=== PATIENT | female | born 1975 | race Caucasian/White ===

== ENCOUNTER 2021-01-21 09:03 | Inpatient (IN) ==
[2021-01-21] MEDS ORDERED: SODIUM CHLORIDE 0.9% 1,000 ML IV STA (09:29)
[2021-01-21] MEDS ORDERED: ONDANSETRON 4 MG/2 ML VIAL IV ONE (09:50)
[2021-01-21] MEDS ORDERED: KETOROLAC 30 MG/1 ML VIAL IV STA (09:50)
[2021-01-21 10:28] LABS: Basophils # 0.1 10*3/uL (0.0-0.2); Basophils % 0.8 % (0.0-0.8); Eosinophils # 0.1 10*3/uL (0.0-0.87); Eosinophils % 2.1 % (0.00-10.9); Hematocrit 36.1 VOL% (35.7-47.0); Hemoglobin 13.1 GM/DL (12.0-16.0); Immature Granulocytes % 0.5 %; Immature Granulocytes Absolute 0.03 #; Lymphocytes # 1.1 10*3/uL (1.4-4.0); Lymphocytes % 18.1 % (21.3-54.2); Mean Corpuscular HGB Conc 36.3 GM/DL (32-36); Mean Corpuscular Volume 113.9 FL (87-102); Mean Platelet Volume 12.7 FL (9.6-12.0); Monocytes % 10.3 % (1.7-12.7); Neutrophils % 68.2 % (38.7-73.9); Platelet Count 150 T/CUMM (130-400); Red Blood Count 3.17 MC/CUMM (3.8-5.5); Red Cell Distribution Width 15.5 % (9.3-17.3); White Blood Count 6.1 T/CUMM (4-12)
[2021-01-21 10:34] LABS: Bacteria,Urine Many /HPF (Few); Bilirubin,Urine Moderate mg/dL (Negative); Blood, Urine Negative (Negative); Glucose,Urine (UA) Negative (Negative); Ketones,Urine 5 mg/dL (Negative); Mucus,Urine Many /LPF (Occasional); Nitrite,Urine Positive (Negative); Protein,Urine 30 MG/DL; RBC,Urine 4 /HPF (0-4); Squamous Epithelial Cell,Urine Occasional /HPF (0-10); Urine Appearance CLEAR (Clear); Urine Color Amber (Yellow)
[2021-01-21 10:47] LABS: Hypochromasia 2+; Macrocytosis 1+; Target Cells Slight
[2021-01-21 10:48] LABS: Platelet Estimate Adequate
[2021-01-21 11:11] LABS: Albumin 2.9 G/DL (3.4-5.0); Bilirubin,Total 5.8 MG/DL (0.20-1.00); Calcium 8.5 MG/DL (8.5-10.1); Osmolality,Calculated 260.4 MOS/KG (273-304); Potassium 3.6 MMOL/L (3.5-5.1); Total Protein 7.4 G/DL (6.4-8.2)
[2021-01-21] MEDS ORDERED: MORPHINE 2 MG/1 ML SYRINGE IV STA (11:59)
[2021-01-21 13:24] LABS: Hepatitis B Core IgM Quant 0.13 Index; Hepatitis B Surface Ag Quant < 0.10 Index; Hepatitis B Surface Ag Result Non-Reactive (NonReactive); Hepatitis C Virus Ab Quant 0.07 Index; Hepatitis C Virus Ab Result Non-Reactive (NonReactive)
[2021-01-21] MEDS ORDERED: PIPERACILLIN/TAZOBACTAM 3,375 MG in SODIUM CHLORIDE 0.9% 100 ML IV STA (13:32)
[2021-01-21] MEDS ORDERED: GLUCAGON 1 MG VIAL IM PRN (14:36)
[2021-01-21] MEDS ORDERED: ONDANSETRON 4 MG/2 ML VIAL IV PRN (14:36)
[2021-01-21] MEDS ORDERED: MORPHINE 2 MG/1 ML SYRINGE IV PRN (14:36)
[2021-01-21] MEDS ORDERED: hydrALAZINE 20 MG/1 ML VIAL IV PRN (14:36)
[2021-01-21] MEDS ORDERED: DEXTROSE 50% 25 GM/50 ML SYRINGE IV PRN (14:42)
[2021-01-21] MEDS: LACTATED RINGERS 1,000 ML IV SCH (16:37)
[2021-01-21] MEDS: PANTOPRAZOLE 40 MG VIAL IV SCH (16:38)
[2021-01-21] MEDS ORDERED: INFLUENZA VIRUS VACCINE 0.5 ML SYRINGE IM ONE (17:03)
[2021-01-21] MEDS: PIPERACILLIN/TAZOBACTAM 3,375 MG in SODIUM CHLORIDE 0.9% 100 ML IV SCH (20:52)
[2021-01-22] MEDS: PIPERACILLIN/TAZOBACTAM 3,375 MG in SODIUM CHLORIDE 0.9% 100 ML IV SCH ×3 (04:57→21:05)
[2021-01-22] MEDS: LACTATED RINGERS 1,000 ML IV SCH (05:03)
[2021-01-22 05:15] LABS: Eosinophils # 0.2 10*3/uL (0.0-0.87); Eosinophils % 5.4 % (0.00-10.9); Hematocrit 30.6 VOL% (35.7-47.0); Hemoglobin 10.8 GM/DL (12.0-16.0); Immature Granulocytes % 0.5 %; Immature Granulocytes Absolute 0.02 #; Lymphocytes # 1.6 10*3/uL (1.4-4.0); Lymphocytes % 41.8 % (21.3-54.2); Mean Corpuscular HGB Conc 35.3 GM/DL (32-36); Mean Corpuscular Volume 118.6 FL (87-102); Mean Platelet Volume 12.2 FL (9.6-12.0); Monocytes % 8.5 % (1.7-12.7); Neutrophils % 42.8 % (38.7-73.9); Red Blood Count 2.58 MC/CUMM (3.8-5.5); Red Cell Distribution Width 15.9 % (9.3-17.3)
[2021-01-22 05:28] LABS: Platelet Count 111 T/CUMM (130-400); White Blood Count 3.9 T/CUMM (4-12)
[2021-01-22 05:38] LABS: Albumin 2.3 G/DL (3.4-5.0); Calcium 7.8 MG/DL (8.5-10.1); Osmolality,Calculated 273.4 MOS/KG (273-304); Potassium 3.1 MMOL/L (3.5-5.1); Total Protein 5.4 G/DL (6.4-8.2)
[2021-01-22 05:52] LABS: Folate 2.68 NG/ML (5.38-24.0)
[2021-01-22] MEDS ORDERED: MAGNESIUM SULF RIDER 4 GM/100 ML PREMIX IV PRN (06:06)
[2021-01-22] MEDS ORDERED: MAGNESIUM SULF RIDER 2 GM/50 ML PREMIX IV PRN (06:06)
[2021-01-22] MEDS: POTASSIUM CHLORIDE RIDER 10 MEQ/100 ML PREMIX IV PRN ×4 (06:22→16:47)
[2021-01-22] MEDS ORDERED: MAGNESIUM SULF RIDER 2 GM/50 ML PREMIX IV ONE (09:05)
[2021-01-22] MEDS: NICOTINE 21 MG/24 HR PATCH TRANSDERM SCH (10:01)
[2021-01-22] MEDS: FOLIC ACID 1 MG TABLET PO SCH ×2 (10:01→21:06)
[2021-01-22] MEDS: PANTOPRAZOLE 40 MG VIAL IV SCH (11:22)
[2021-01-23] MEDS: LACTATED RINGERS 1,000 ML IV SCH ×2 (02:45→02:46)
[2021-01-23] MEDS: PIPERACILLIN/TAZOBACTAM 3,375 MG in SODIUM CHLORIDE 0.9% 100 ML IV SCH (05:13)
[2021-01-23 06:36] LABS: Basophils # 0.1 10*3/uL (0.0-0.2); Basophils % 1.4 % (0.0-0.8); Eosinophils # 0.2 10*3/uL (0.0-0.87); Eosinophils % 5.6 % (0.00-10.9); Hematocrit 31.7 VOL% (35.7-47.0); Hemoglobin 11.3 GM/DL (12.0-16.0); Immature Granulocytes % 0.3 %; Immature Granulocytes Absolute 0.01 #; Lymphocytes # 1.4 10*3/uL (1.4-4.0); Lymphocytes % 40.1 % (21.3-54.2); Mean Corpuscular HGB Conc 35.6 GM/DL (32-36); Mean Corpuscular Volume 119.2 FL (87-102); Mean Platelet Volume 12.6 FL (9.6-12.0); Monocytes % 10.4 % (1.7-12.7); Neutrophils % 42.2 % (38.7-73.9); Platelet Count 111 T/CUMM (130-400); Red Blood Count 2.66 MC/CUMM (3.8-5.5); White Blood Count 3.6 T/CUMM (4-12)
[2021-01-23 06:40] LABS: Calcium 8.1 MG/DL (8.5-10.1); Osmolality,Calculated 273.4 MOS/KG (273-304); Potassium 3.1 MMOL/L (3.5-5.1)
[2021-01-23 06:50] LABS: Macrocytosis 1+; Platelet Estimate Adequate; Target Cells Few
[2021-01-23 06:51] LABS: Hypochromasia 1+
[2021-01-23] MEDS ORDERED: THIAMINE 100 MG TABLET PO SCH (09:00)
[2021-01-23] MEDS: FOLIC ACID 1 MG TABLET PO SCH (10:09)
[2021-01-23] MEDS: POTASSIUM CHLORIDE 20 MEQ TABLET PO PRN ×2 (10:09→12:19)
[2021-01-23] MEDS: PANTOPRAZOLE 40 MG VIAL IV SCH (10:10)
[2021-01-23] MEDS: NICOTINE 21 MG/24 HR PATCH TRANSDERM SCH (10:10)
[2021-01-23 17:10] VITALS: BP 96/64
== END 2021-01-23 14:30 | disposition home or self-care (01) | DRG 442 ==
LOC: N.ED 09:03 → N.EDINP 14:36 → SUATTDRO 14:36 → N.3E 15:39
PROVIDERS: ADMIT Internal Medicine; ATTEND Internal Medicine